=== PATIENT | male | born 1955 | race Caucasian/White ===

== ENCOUNTER 2023-08-08 11:01 | Emergency (ER) | payer MEDICARE ==
[~2023-08-08] VITALS: Ht 167.6 cm; Wt 73.9 kg
[2023-08-08 11:24] VITALS: BP 147/70; PULSE 58; RESP 16; TEMP 97.8; O2SAT 98
[2023-08-08 12:07] VITALS: BP 140/70; PULSE 58; RESP 16; TEMP 97.8; O2SAT 98
[2023-08-08] MEDS ORDERED: LIDODERM TP STA (12:25)
[2023-08-08] MEDS ORDERED: ROBAXIN PO STA (12:25)
[2023-08-08] MEDS ORDERED: TORADOL IM STA (12:25)
[2023-08-08] MEDS ORDERED: ROBAXIN ONE (13:07)
[2023-08-08] MEDS ORDERED: TORADOL ONE (13:07)
[2023-08-08] MEDS ORDERED: LIDODERM TP ONE (13:07)
[2023-08-08 13:40] VITALS: BP 135/68; PULSE 62; RESP 18; TEMP 98.2; O2SAT 98
== END 2023-08-08 13:46 | disposition home or self-care (01) ==
LOC: ER 11:01
DX: R07.81 Pleurodynia (principal); E07.9 Disorder of thyroid, unspecified; E78.00 Pure hypercholesterolemia, unspecified
CPT/HCPCS: 99285; 71250; 96372; J2800; J1885